=== PATIENT | male | born 1940 ===

== ENCOUNTER 2018-06-26 02:45 | Inpatient (IN) | payer MEDICARE ==
[2018-06-26] MEDS ORDERED: VANCOMYCIN 1,000 MG in NACL 0.9% 500 ML 500 ML IV ONE (03:30)
[2018-06-26] MEDS ORDERED: NACL 0.9% 1000 ML IV ONE (03:30)
[2018-06-26] MEDS ORDERED: ZOFRAN IV ONE (03:33)
[2018-06-26] MEDS ORDERED: PROTONIX IV ONE ×2 (03:34→05:56)
--- NOTE | 2018-06-26 03:39 | Emergency Department Report ---
ED General Adult HPI - General Chief complaint: GI Bleed Stated complaint: VOMITING BLOOD Time Seen by Provider: 06/26/18 03:18 Source: EMS (verbal report received from EMS.ems notes not available at time of chart dictation), old records reviewed Mode of arrival: Stretcher Limitations: Altered Mental Status, Physical Limitation - History of Present Illness Initial comments: This is a 78-year-old gentleman who presents to the ER from a local shelter. Patient is brought to the hospital for lethargy, hypotension and possible upper GI bleed. His primary care doctor is Dr. Grant Romero, and his medical records indicate that he has a history of anemia, sepsis, renal insufficiency, and prostatic neoplasm. The patient indicates that he has abdominal pain but he is confused. The patient is not able to describe exacerbating or relieving factors, radiation, or qualitative nature of his symptoms. History is limited as the patient appears to be delirious. snf records did not give significant additional information. -: unknown Associated Symptoms: confusion, fever/chills, malaise, nausea/vomiting, weakness - Related Data Home Medications Medication Instructions Recorded Confirmed Last Taken Famotidine [Acid Controller] 20 mg PO DAILY 06/27/18 06/27/18 06/16/18 09:00 20mg Ferrous Sulfate [Iron] 325 mg PO TIDAC 06/27/18 06/27/18 06/15/18 325mg Ropinirole HCl [Requip] 2 mg PO DAILY 06/27/18 06/27/18 06/16/18 09:00 2mg Tolterodine Tartrate [Detrol] 2 mg PO DAILY 06/27/18 06/27/18 06/15/18 09:00 2mg Allergies Allergy/AdvReac Type Severity Reaction Status Date / Time No Known Drug Allergies Allergy Unknown Verified 06/26/18 03:39 ED Review of Systems ROS: Stated complaint: VOMITING BLOOD Other details as noted in HPI Comment: Unobtainable due to pts medical conditions ED Past Medical Hx - Medications Home Medications: Home Medications Medication Instructions Recorded Confirmed Last Taken Type Famotidine [Acid Controller] 20 mg PO DAILY 06/27/18 06/27/18 06/16/18 09:00 History 20mg Ferrous Sulfate [Iron] 325 mg PO TIDAC 06/27/18 06/27/18 06/15/18 History 325mg Ropinirole HCl [Requip] 2 mg PO DAILY 06/27/18 06/27/18 06/16/18 09:00 History 2mg Tolterodine Tartrate [Detrol] 2 mg PO DAILY 06/27/18 06/27/18 06/15/18 09:00 History 2mg ED Physical Exam - General Limitations: Altered Mental Status, Physical Limitation General appearance: anxious - Head Head exam: Present: atraumatic - Eye Eye exam: Present: normal appearance - ENT ENT exam: Present: normal exam, mucous membranes dry, normal external ear exam - Neck Neck exam: Present: normal inspection, full ROM. Absent: tenderness, meningismus - Respiratory Respiratory exam: Present: rhonchi. Absent: rales - Cardiovascular Cardiovascular Exam: Present: normal rhythm, tachycardia, normal heart sounds - GI/Abdominal GI/Abdominal exam: Present: soft, tenderness. Absent: distended, pulsatile mass - Rectal Rectal exam: Present: normal inspection, heme (+) stool, black stool, other ( chaperoned by nurse FLACO TURNER) - exam: Present: normal inspection External exam: Present: normal external exam - Extremities Exam Extremities exam: Present: normal inspection, pedal edema - Back Exam Back exam: Present: normal inspection. Absent: tenderness, CVA tenderness (R), paraspinal tenderness - Neurological Exam Neurological exam: Present: altered, other (patient is awake. Patient follows some commands. He moves 4 extremities. There is no facial droop. Detailed neurologic examination is incomplete secondary to delirium and patient's inability to cooperate.) - Psychiatric Psychiatric exam: Present: anxious - Skin Skin exam: Present: dry ED Course Vital Signs 06/26/18 06/26/18 06/26/18 03:16 04:15 05:25 Temperature 100.9 F H Pulse Rate 110 H 130 H Respiratory 18 20 Rate Blood Pressure 106/49 109/43 116/60 Blood Pressure 106/49 [Left] O2 Sat by Pulse 98 98 93 Oximetry 06/26/18 06/26/18 06/26/18 06:15 07:00 07:51 Temperature Pulse Rate 122 H 115 H 109 H Respiratory 28 H 25 H 25 H Rate Blood Pressure 116/59 128/50 120/52 Blood Pressure [Left] O2 Sat by Pulse 100 99 97 Oximetry - Reevaluation(s) Reevaluation #1: 06/26/18 03:37 Differential diagnosis, including but not limited to: Bacteremia, pneumonia, urinary tract infection, intra-abdominal infection, GI bleed Assessment and plan: 78-year-old male with hypotension, delirium, history of coffee-ground emesis, black stool, guaiac positive, focal rhonchi noted on the bilateral lower lung oliveira. Has a fever of 100.9 and tachycardic. Clinical picture is concerning for both GI bleed as well as sepsis. The patient will be resuscitated according to the sepsis pathway. 2 large bore IVs will be established, he will be made nothing per mouth, head of bed will be elevated, broad-spectrum antibiotics will be delivered, CT scan of the brain, x-ray of the chest, CT scan of the abdomen and pelvis will be acquired. In terms of his GI bleed, he will receive IV fluids, Protonix, anti-emetic medication, and we will obtain GI consult. Patient will be admitted to the hospital once his initial diagnostics have resulted. Reevaluation #2: 06/26/18 05:35 CT scan of the brain is negative. CT scan of the abdomen and pelvis suggests fecal impaction with large amount of stool in the sigmoid colon and left colon, as well as colitis of the sigmoid colon. There is no obstruction. Patient on my exam likely has a sinus tachycardia with a sinus arrhythmia. Case is presented to the Hospital physician, Dr. Vazquez; she accepted the patient to the medical service. Awaiting callback from GI. ED Medical Decision Making - Lab Data Result diagrams: 06/27/18 09:10 06/27/18 09:10 Vital Signs 06/26/18 03:16 Temperature 100.9 F H Pulse Rate 110 H Respiratory 18 Rate Blood Pressure 106/49 Blood Pressure 106/49 [Left] O2 Sat by Pulse 98 Oximetry Vital Signs 06/26/18 03:16 Temperature 100.9 F H Pulse Rate 110 H Respiratory 18 Rate Blood Pressure 106/49 Blood Pressure 106/49 [Left] O2 Sat by Pulse 98 Oximetry Lab Results 06/26/18 06/26/18 06/26/18 Range/Units 03:50 03:50 03:50 WBC 28.9 H (4.5-11.0) K/mm3 RBC 4.12 (3.65-5.03) M/mm3 Hgb 9.0 L (11.8-15.2) gm/dl Hct 29.1 L (35.5-45.6) % MCV 71 L (84-94) fl MCH 22 L (28-32) pg MCHC 31 L (32-34) % RDW 21.4 H (13.2-15.2) % Plt Count 439 (140-440) K/mm3 PT 17.4 H (12.2-14.9) Sec. INR 1.37 H (0.87-1.13) APTT 32.2 (24.2-36.6) Sec. Sodium 131 L (137-145) mmol/L Potassium 3.3 L (3.6-5.0) mmol/L Chloride 93.2 L (98-107) mmol/L Carbon Dioxide 20 L (22-30) mmol/L Anion Gap 21 mmol/L BUN 20 (9-20) mg/dL Creatinine 1.7 H (0.8-1.5) mg/dL Estimated GFR 39 ml/min BUN/Creatinine Ratio 12 % Glucose 191 H (75-100) mg/dL Calcium 8.5 (8.4-10.2) mg/dL Magnesium (1.7-2.3) mg/dL Total Bilirubin 1.50 H (0.1-1.2) mg/dL AST 14 (5-40) units/L ALT 7 (7-56) units/L Alkaline Phosphatase 75 (35-129) units/L Ammonia (25-60) umol/L Total Creatine Kinase 69 (55-170) units/L Total Protein 6.3 (6.3-8.2) g/dL Albumin 2.6 L (3.9-5) g/dL Albumin/Globulin Ratio 0.7 % 06/26/18 06/26/18 Range/Units 03:50 03:50 WBC (4.5-11.0) K/mm3 RBC (3.65-5.03) M/mm3 Hgb (11.8-15.2) gm/dl Hct (35.5-45.6) % MCV (84-94) fl MCH (28-32) pg MCHC (32-34) % RDW (13.2-15.2) % Plt Count (140-440) K/mm3 PT (12.2-14.9) Sec. INR (0.87-1.13) APTT (24.2-36.6) Sec. Sodium (137-145) mmol/L Potassium (3.6-5.0) mmol/L Chloride (98-107) mmol/L Carbon Dioxide (22-30) mmol/L Anion Gap mmol/L BUN (9-20) mg/dL Creatinine (0.8-1.5) mg/dL Estimated GFR ml/min BUN/Creatinine Ratio % Glucose (75-100) mg/dL Calcium (8.4-10.2) mg/dL Magnesium 1.70 (1.7-2.3) mg/dL Total Bilirubin (0.1-1.2) mg/dL AST (5-40) units/L ALT (7-56) units/L Alkaline Phosphatase (35-129) units/L Ammonia 62.0 H (25-60) umol/L Total Creatine Kinase (55-170) units/L Total Protein (6.3-8.2) g/dL Albumin (3.9-5) g/dL Albumin/Globulin Ratio % - EKG Data -: EKG Interpreted by Me EKG shows normal: sinus rhythm Rate: tachycardia - EKG Data When compared to previous EKG there are: previous EKG unavailable 06/26/18 04:49 Sinus tachycardia, normal axis, QTC prolonged, motion artifact, no gross evidence of ST elevation myocardial infarction. Ventricular rate approximately 1 23 bpm - Radiology Data Radiology results: image reviewed interpreted by me: X-ray of the chest is rotated, shows no obvious disease, poor inspiratory effort Critical care attestation.: If time is entered above; I have spent that time in minutes in the direct care of this critically ill patient, excluding procedure time. ED Disposition Clinical Impression: Sepsis, GI bleed Disposition: OP ADMIT IP TO THIS HOSP Is pt being admited?: Yes Condition: Poor
[2018-06-26] MEDS ORDERED: LEVAQUIN 750MG/150ML 750 MG/150 ML BAG IV ONE (04:00)
[2018-06-26] MEDS ORDERED: MAXIPIME/NS 2 GM/100 ML 2 GM/100 ML BAG IV ONE (04:00)
[2018-06-26] MEDS ORDERED: NACL 0.9% 250ML 250 ML IV ONE (04:11)
[2018-06-26] MEDS ORDERED: NACL 0.9% 500 ML 500 ML IV ONE (04:11)
[2018-06-26 04:25] LABS: Hematocrit 29.1 % (35.5-45.6); Mean Corpuscular HGB Conc 31 % (32-34); Mean Corpuscular Volume 71 fl (84-94); Platelet Count 439 K/mm3 (140-440); Red Blood Count 4.12 M/mm3 (3.65-5.03)
[2018-06-26 04:27] LABS: INR 1.37 (0.87-1.13)
[2018-06-26 04:28] LABS: Partial Thromboplastin Time 32.2 Sec. (24.2-36.6)
[2018-06-26 04:29] LABS: Mean Corpuscular Hemoglobin 22 pg (28-32); Red Cell Distribution Width 21.4 % (13.2-15.2)
[2018-06-26 04:34] LABS: Albumin 2.6 g/dL (3.9-5); Calcium 8.5 mg/dL (8.4-10.2)
[2018-06-26] MEDS ORDERED: VANCOMYCIN 1,750 MG in NACL 0.9% 500 ML 500 ML IV ONE (05:00)
[2018-06-26 05:09] LABS: Band Neutrophils # (Manual) 5.5 K/mm3; Basophils % (Manual) 0 % (0.0-1.8); Eosinophils % (Manual) 0 % (0.0-4.3); Monocytes % (Manual) 7.5 % (0.0-7.3); Total Cells Counted 200
[2018-06-26 05:10] LABS: Anisocytosis 1+; Hypochromasia 1+; Platelet Estimate Consistent w Auto
--- NOTE | 2018-06-26 05:11 | XRay Report ---
FINAL REPORT PROCEDURE: XR CHEST 1V AP TECHNIQUE: Chest radiograph anteroposterior view. CPT 33260 HISTORY: sepsis pna COMPARISON: No prior studies are available for comparison. FINDINGS: Heart: Normal. Mediastinum/Vessels: Normal. Lungs/Pleural space: Normal. Bony thorax: No acute osseous abnormality. Life support devices: None. IMPRESSION: No acute cardiopulmonary abnormality.
--- NOTE | 2018-06-26 05:16 | Cat Scan Report ---
FINAL REPORT PROCEDURE: CT HEAD/BRAIN WO CON TECHNIQUE: Computerized tomography of the head was performed without contrast material. HISTORY: AMS COMPARISON: No prior studies are available for comparison. FINDINGS: Skull and scalp: Normal. Paranasal sinuses: Normal. Ventricles and subarachnoid spaces: There is advanced central and cortical atrophy. There is no hydrocephalus or asymmetry.. Cerebrum: No evidence of hemorrhage, acute infarction or mass. There is mild chronic deep white matter ischemic gliosis. Cerebellum and brainstem: No evidence of hemorrhage, acute infarction or mass. Vasculature: Normal. Comments: None. IMPRESSION: There are chronic involutional and ischemic changes. There is no the hemorrhage, edema, mass, mass effect or midline shift.
--- NOTE | 2018-06-26 05:26 | Cat Scan Report ---
FINAL REPORT PROCEDURE: CT ABDOMEN PELVIS WO CON TECHNIQUE: Computerized axial tomography of the abdomen and pelvis was performed without intravenous contrast. This study is performed without intravascular contrast material and its sensitivity for abdominal and pelvic pathology, including neoplasms, inflammation, abscess, free fluid, thrombosis, arterial dissection and infarction, is reduced compared with a contrast enhanced study. HISTORY: abd pain sepsis COMPARISON: No prior studies are available for comparison. FINDINGS: Visualized lower thorax: No significant abnormality. Liver: Normal size and attenuation. Spleen: Normal size and attenuation. Gallbladder and biliary system: There is cholelithiasis.. Pancreas: Normal. Adrenals: Normal. Kidneys: Normal. GI tract: There is a small hiatal hernia. The stomach and small bowel are otherwise unremarkable. There is fecal impaction. There is a large amount of stool in the sigmoid colon and left colon. There is mucosal thickening of the sigmoid colon suggesting colitis. There is no volvulus, mechanical obstruction or mass. There is no diverticulitis. The appendix is normal.. Lymph nodes and mesentery: Normal. Vasculature: There is calcified plaque in the abdominal aorta. There is no aneurysm per. Bladder: Normal. Reproductive organs: Normal. Peritoneum: There is no ascites or free air, abscess or adenopathy.. Musculoskeletal structures: There are old fractures of the left superior and inferior pubic rami.. Other: None. IMPRESSION: There is cholelithiasis.. There is a small hiatal hernia. The stomach and small bowel are otherwise unremarkable. There is fecal impaction. There is a large amount of stool in the sigmoid colon and left colon. There is mucosal thickening of the sigmoid colon suggesting colitis. There is no volvulus, mechanical obstruction or mass. There is no diverticulitis. The appendix is normal.. There is no ascites or free air, abscess or adenopathy.. There are old fractures of the left superior and inferior pubic rami.. .
[2018-06-26] MEDS ORDERED: ZOFRAN ONE (05:56)
--- NOTE | 2018-06-26 06:12 | History and Physical Report ---
History of Present Illness Date of examination: 06/26/18 Date of admission: 06/26/18 Chief complaint: Lethargy and hypotension per report History of present illness: Patient is a 78 y/o [place] resident with hx of anemia, renal insufficiency, and prostate cancer who was brought to the ED for lethargy, hypotension and possible upper GI bleed. Patient is a poor historian and does not know why he was brought to the hospital, so hx was obtained from the chart. He admits to generalized abdominal pain. No reported hx of fever, vomiting, chest pain, sob, diarrhea, falls, syncope or LOC. Past History Past Medical History: renal failure, other (Prostate cancer, anemia) Past Surgical History: Other (could not be obtained due to AMS) Social history: other (could not be obtained due to AMS) Family history: other (could not be obtained due to AMS) Medications and Allergies Allergies Allergy/AdvReac Type Severity Reaction Status Date / Time No Known Drug Allergies Allergy Unknown Verified 06/26/18 03:39 Active Meds: Active Medications Vancomycin HCl 1,750 mg/ (Sodium Chloride) 535 mls @ 333.333 mls/hr IV ONCE ONE Stop: 06/26/18 06:36 Potassium Chloride (Kcl 10meq/100ml) 10 meq in 100 mls @ 100 mls/hr IV Q1H DELORES Stop: 06/26/18 07:59 Metronidazole (Flagyl 500 Mg/100 Ml) 500 mg in 100 mls @ 100 mls/hr IV Q8HR DELORES ; Protocol Piperacillin Sod/Tazobactam Sod (Zosyn/Ns 3.375gm/50ml) 3.375 gm in 50 mls @ 100 mls/hr IV Q8H DELORES; Protocol Pantoprazole Sodium (Protonix) 40 mg IV BID DELORES Review of Systems ROS unobtainable: due to mental status Exam - Constitutional Vitals: Temp Pulse Resp BP Pulse Ox 100.9 F H 110 H 18 106/49 98 06/26/18 03:16 06/26/18 03:16 06/26/18 03:16 06/26/18 03:16 06/26/18 03:16 General appearance: Present: no acute distress - EENT Eyes: Present: PERRL, EOM intact ENT: clear oral mucosa, other (hearing impairment) - Neck Neck: Present: supple, normal ROM - Respiratory Respiratory effort: normal Respiratory: bilateral: CTA - Cardiovascular Rhythm: other (tachycardia with regular rhythm) Heart Sounds: Present: S1 & S2 - Extremities Extremities: pulses symmetrical Extremity abnormal: edema (trace edema in BLE) - Abdominal General gastrointestinal: Present: soft, tender (mild and generalized), non- distended, normal bowel sounds Male genitourinary: Present: deferred - Neurologic Neurologic: CNII-XII intact Results - Labs CBC & Chem 7: 06/26/18 03:50 06/26/18 03:50 Labs: Laboratory Last Values WBC 28.9 K/mm3 (4.5-11.0) H 06/26/18 03:50 RBC 4.12 M/mm3 (3.65-5.03) 06/26/18 03:50 Hgb 9.0 gm/dl (11.8-15.2) L 06/26/18 03:50 Hct 29.1 % (35.5-45.6) L 06/26/18 03:50 MCV 71 fl (84-94) L 06/26/18 03:50 MCH 22 pg (28-32) L 06/26/18 03:50 MCHC 31 % (32-34) L 06/26/18 03:50 RDW 21.4 % (13.2-15.2) H 06/26/18 03:50 Plt Count 439 K/mm3 (140-440) 06/26/18 03:50 Add Manual Diff Complete 06/26/18 03:50 Total Counted 200 06/26/18 03:50 Seg Neuts % (Manual) 72.5 % (40.0-70.0) H 06/26/18 03:50 Band Neutrophils % 19.0 % 06/26/18 03:50 Lymphocytes % (Manual) 1.0 % (13.4-35.0) L 06/26/18 03:50 Reactive Lymphs % (Man) 0 % 06/26/18 03:50 Monocytes % (Manual) 7.5 % (0.0-7.3) H 06/26/18 03:50 Eosinophils % (Manual) 0 % (0.0-4.3) 06/26/18 03:50 Basophils % (Manual) 0 % (0.0-1.8) 06/26/18 03:50 Metamyelocytes % 0 % 06/26/18 03:50 Myelocytes % 0 % 06/26/18 03:50 Promyelocytes % 0 % 06/26/18 03:50 Blast Cells % 0 % 06/26/18 03:50 Nucleated RBC % Not Reportable 06/26/18 03:50 Seg Neutrophils # Man 21.0 K/mm3 (1.8-7.7) H 06/26/18 03:50 Band Neutrophils # 5.5 K/mm3 06/26/18 03:50 Lymphocytes # (Manual) 0.3 K/mm3 (1.2-5.4) L 06/26/18 03:50 Abs React Lymphs (Man) 0.0 K/mm3 06/26/18 03:50 Monocytes # (Manual) 2.2 K/mm3 (0.0-0.8) H 06/26/18 03:50 Eosinophils # (Manual) 0.0 K/mm3 (0.0-0.4) 06/26/18 03:50 Basophils # (Manual) 0.0 K/mm3 (0.0-0.1) 06/26/18 03:50 Metamyelocytes # 0.0 K/mm3 06/26/18 03:50 Myelocytes # 0.0 K/mm3 06/26/18 03:50 Promyelocytes # 0.0 K/mm3 06/26/18 03:50 Blast Cells # 0.0 K/mm3 06/26/18 03:50 WBC Morphology Not Reportable 06/26/18 03:50 Hypersegmented Neuts Not Reportable 06/26/18 03:50 Hyposegmented Neuts Not Reportable 06/26/18 03:50 Hypogranular Neuts Not Reportable 06/26/18 03:50 Smudge Cells Not Reportable 06/26/18 03:50 Toxic Granulation Not Reportable 06/26/18 03:50 Toxic Vacuolation Not Reportable 06/26/18 03:50 Dohle Bodies Not Reportable 06/26/18 03:50 Pelger-Huet Anomaly Not Reportable 06/26/18 03:50 Reza Rods Not Reportable 06/26/18 03:50 Platelet Estimate Consistent w auto 06/26/18 03:50 Clumped Platelets Not Reportable 06/26/18 03:50 Plt Clumps, EDTA Not Reportable 06/26/18 03:50 Large Platelets Not Reportable 06/26/18 03:50 Giant Platelets Not Reportable 06/26/18 03:50 Platelet Satelliting Not Reportable 06/26/18 03:50 Plt Morphology Comment Not Reportable 06/26/18 03:50 RBC Morphology Not Reportable 06/26/18 03:50 Dimorphic RBCs Not Reportable 06/26/18 03:50 Polychromasia Not Reportable 06/26/18 03:50 Hypochromasia 1+ 06/26/18 03:50 Poikilocytosis Not Reportable 06/26/18 03:50 Anisocytosis 1+ 06/26/18 03:50 Microcytosis Not Reportable 06/26/18 03:50 Macrocytosis Not Reportable 06/26/18 03:50 Spherocytes Not Reportable 06/26/18 03:50 Pappenheimer Bodies Not Reportable 06/26/18 03:50 Sickle Cells Not Reportable 06/26/18 03:50 Target Cells Not Reportable 06/26/18 03:50 Tear Drop Cells Not Reportable 06/26/18 03:50 Ovalocytes Not Reportable 06/26/18 03:50 Helmet Cells Not Reportable 06/26/18 03:50 [place] Bodies Not Reportable 06/26/18 03:50 [place] Rings Not Reportable 06/26/18 03:50 Buster Cells Not Reportable 06/26/18 03:50 Bite Cells Not Reportable 06/26/18 03:50 Crenated Cell Not Reportable 06/26/18 03:50 Elliptocytes 1+ 06/26/18 03:50 Acanthocytes (Spur) Not Reportable 06/26/18 03:50 Rouleaux Not Reportable 06/26/18 03:50 Hemoglobin C Crystals Not Reportable 06/26/18 03:50 Schistocytes Not Reportable 06/26/18 03:50 Malaria parasites Not Reportable 06/26/18 03:50 Lj Bodies Not Reportable 06/26/18 03:50 Hem Pathologist Commnt No 06/26/18 03:50 PT 17.4 Sec. (12.2-14.9) H 06/26/18 03:50 INR 1.37 (0.87-1.13) H 06/26/18 03:50 APTT 32.2 Sec. (24.2-36.6) 06/26/18 03:50 Sodium 131 mmol/L (137-145) L 06/26/18 03:50 Potassium 3.3 mmol/L (3.6-5.0) L 06/26/18 03:50 Chloride 93.2 mmol/L (98-107) L 06/26/18 03:50 Carbon Dioxide 20 mmol/L (22-30) L 06/26/18 03:50 Anion Gap 21 mmol/L 06/26/18 03:50 BUN 20 mg/dL (9-20) 06/26/18 03:50 Creatinine 1.7 mg/dL (0.8-1.5) H 06/26/18 03:50 Estimated GFR 39 ml/min 06/26/18 03:50 BUN/Creatinine Ratio 12 % 06/26/18 03:50 Glucose 191 mg/dL (75-100) H 06/26/18 03:50 Lactic Acid 2.90 mmol/L (0.7-2.0) H* 06/26/18 03:50 Calcium 8.5 mg/dL (8.4-10.2) 06/26/18 03:50 Magnesium 1.70 mg/dL (1.7-2.3) 06/26/18 03:50 Total Bilirubin 1.50 mg/dL (0.1-1.2) H 06/26/18 03:50 AST 14 units/L (5-40) 06/26/18 03:50 ALT 7 units/L (7-56) 06/26/18 03:50 Alkaline Phosphatase 75 units/L (35-129) 06/26/18 03:50 Ammonia 62.0 umol/L (25-60) H 06/26/18 03:50 Total Creatine Kinase 69 units/L (55-170) 06/26/18 03:50 Total Protein 6.3 g/dL (6.3-8.2) 06/26/18 03:50 Albumin 2.6 g/dL (3.9-5) L 06/26/18 03:50 Albumin/Globulin Ratio 0.7 % 06/26/18 03:50 TSH 1.910 mlU/mL (0.270-4.200) 06/26/18 03:50 Blood Type A POSITIVE 06/26/18 03:50 Antibody Screen Negative 06/26/18 03:50 Assessment and Plan Assessment and plan: Severe sepsis, probably sec to colitis -sepsis protocol -on iv antibiotics -f/u blood culture results Acute encephalopathy, probably sec to the sepsis -CT head neg -will monitor clinically Hypotension, likely sec to the sepsis -s/p IVF boluses in the ED -on maintenance IVF, will monitor BP closely Heme positive stool -on protonix -monitor H/H -GI consulted in the ED Hyponatremia -on IVF, will monitor na level Hypokalemia -repleted in the ED -will monitor and cont repletion as needed Acute on CRF -baseline cr level unknown -on IVF, will monitor cr level Fecal impaction -on laxatives Hyperglycemia -will check HBA1C level -wll place pt on Lantus and SSI Prophylaxis -DVT prophylaxis with SCD TIME SPENT: 40 MINUTES
[2018-06-26] MEDS: KCL 10MEQ/100ML 10 MEQ/100 ML BAG IV SCH ×2 (06:17→07:41)
[2018-06-26] MEDS: TYLENOL PO ONE ×2 (06:23→06:45)
[2018-06-26] MEDS ORDERED: D50W (25GM) Syringe IV PRN (06:35)
--- NOTE | 2018-06-26 06:45 | Emergency Department Report ---
Blank Doc - Documentation Documentation: Patient is 78-year-old male with history of prostate cancer admitted to the hospital for possible upper GI bleed. I discussed the patient was Dr. Jolley from gastroenterology and he advised that he will follow-up with the patient in the hospital.
[2018-06-26] MEDS ORDERED: TYLENOL ONE (06:58)
[2018-06-26 07:10] LABS: Bacteria,Urine 1+ /HPF (Negative); Bilirubin,Urine SM (Negative); Blood,Urine NEG (Negative); Color,Urine Amber (Yellow); Mucus,Urine FEW /HPF
[2018-06-26 07:20] LABS: Ictotest,Urine Negative (Negative)
[2018-06-26] MEDS ORDERED: NACL 0.9% 1000 ML 2,000 ML IV ONE (07:30)
[2018-06-26] MEDS ORDERED: MIRALAX 3350 PO SCH (10:00)
[2018-06-26] MEDS ORDERED: DULCOLAX PR SCH (10:00)
[2018-06-26] MEDS: FLAGYL 500 MG/100 ML 500 MG/100 ML BAG IV SCH ×3 (10:13→21:48)
[2018-06-26 10:15] LABS: Hemoglobin 8.5 gm/dl (11.8-15.2)
[2018-06-26] MEDS: SENOKOT S PO SCH ×2 (10:30→21:48)
[2018-06-26] MEDS: HumaLOG SUB-Q SCH ×3 (11:45→23:00)
[2018-06-26] MEDS: PROTONIX IV SCH ×2 (12:00→21:48)
[2018-06-26] MEDS: ZOSYN/NS 3.375GM/50ML 3.375 GM/50 ML BAG IV SCH ×2 (12:00→16:45)
[2018-06-26] MEDS: NACL 0.9% 1000 ML 1,000 ML IV SCH (12:23)
[2018-06-26] MEDS: MORPHINE IV PRN ×2 (12:47→21:52)
--- NOTE | 2018-06-26 14:10 | Gastroenterology Consultation ---
History of Present Illness - Reason for Consult Consult date: 06/26/18 UGI bleed Requesting physician: EVIE LUNDBERG - History of Present Illness Mr Cosme is a 78 yo male who presents with coffee ground emesis, lethargy, abd pain and hypotension. Pt found to have sepsis on admission. Pt is a poor historian and history primarily gathered from chart review and some from patient. He has had abdominal pain for several days, mostly in lower abdomen. Multiple episodes n/v over last few days, dark appearing per pt although no episodes here. he has had black liquid stools since admission. History of renal disease and prostate cancer per chart review. pt with elevated wbc count and anemia on admission. BUN wnl. Past History Past Medical History: renal failure, other (Prostate cancer, anemia) Past Surgical History: Other (could not be obtained due to AMS) Social history: other (could not be obtained due to AMS) Family history: other (could not be obtained due to AMS) Medications and Allergies Allergies Allergy/AdvReac Type Severity Reaction Status Date / Time No Known Drug Allergies Allergy Unknown Verified 06/26/18 03:39 Active Meds: Active Medications Bisacodyl (Dulcolax) 10 mg CO DAILY DELORES Dextrose (D50w (25gm) Syringe) 50 ml IV PRN PRN PRN Reason: Hypoglycemia Metronidazole (Flagyl 500 Mg/100 Ml) 500 mg in 100 mls @ 100 mls/hr IV Q8HR DELORES ; Protocol Last Admin: 06/26/18 10:13 Dose: 100 mls/hr Piperacillin Sod/Tazobactam Sod (Zosyn/Ns 3.375gm/50ml) 3.375 gm in 50 mls @ 100 mls/hr IV Q8H DELORES; Protocol Last Admin: 06/26/18 12:00 Dose: 100 mls/hr Sodium Chloride (Nacl 0.9% 1000 Ml) 1,000 mls @ 100 mls/hr IV DIRECT DELORES Last Admin: 06/26/18 12:23 Dose: 100 mls/hr Insulin Glargine (Lantus) 10 units SUB-Q QHS DELORES Insulin Human Lispro (Humalog) 0 unit SUB-Q ACHS DELORES; Protocol Last Admin: 06/26/18 11:45 Dose: 3 unit Morphine Sulfate (Morphine) 1 mg IV Q4H PRN PRN Reason: Pain, Moderate (4-6) Last Admin: 06/26/18 12:47 Dose: 1 mg Pantoprazole Sodium (Protonix) 40 mg IV BID DELORES Polyethylene Glycol (Miralax 3350) 17 gm PO DAILY DELORES Senna/Docusate Sodium (Senokot S) 2 tab PO BID DELORES Review of Systems - Review of Systems ROS unobtainable: due to mental status Exam - Constitutional Vital Signs: Temp Pulse Resp BP Pulse Ox 100.9 F H 115 H 20 128/50 99 06/26/18 03:16 06/26/18 07:00 06/26/18 12:47 06/26/18 07:00 06/26/18 07:00 General appearance: no acute distress - EENT Eyes: PERRL, EOM intact ENT: other (dry mucous membranes) - Respiratory Respiratory effort: normal Respiratory: bilateral: CTA - Cardiovascular Rhythm: regular Heart Sounds: Present: S1 & S2 Extremities: No edema - Gastrointestinal General gastrointestinal: Present: soft, tender (diffuse ttp), distended (mild distention), hypoactive bowel sounds - Neurologic Neurological: oriented to person, oriented to place - Psychiatric Psychiatric: other (+ memory loss) - Labs CBC & Chem 7: 06/26/18 09:51 06/26/18 09:51 Lab Results: Laboratory Results - last 24 hr 06/26/18 06/26/18 06/26/18 03:50 03:50 03:50 WBC 28.9 H RBC 4.12 Hgb 9.0 L Hct 29.1 L MCV 71 L MCH 22 L MCHC 31 L RDW 21.4 H Plt Count 439 Add Manual Diff Complete Total Counted 200 Seg Neuts % (Manual) 72.5 H Band Neutrophils % 19.0 Lymphocytes % (Manual) 1.0 L Reactive Lymphs % (Man) 0 Monocytes % (Manual) 7.5 H Eosinophils % (Manual) 0 Basophils % (Manual) 0 Metamyelocytes % 0 Myelocytes % 0 Promyelocytes % 0 Blast Cells % 0 Nucleated RBC % Not Reportable Seg Neutrophils # Man 21.0 H Band Neutrophils # 5.5 Lymphocytes # (Manual) 0.3 L Abs React Lymphs (Man) 0.0 Monocytes # (Manual) 2.2 H Eosinophils # (Manual) 0.0 Basophils # (Manual) 0.0 Metamyelocytes # 0.0 Myelocytes # 0.0 Promyelocytes # 0.0 Blast Cells # 0.0 WBC Morphology Not Reportable Hypersegmented Neuts Not Reportable Hyposegmented Neuts Not Reportable Hypogranular Neuts Not Reportable Smudge Cells Not Reportable Toxic Granulation Not Reportable Toxic Vacuolation Not Reportable Dohle Bodies Not Reportable Pelger-Huet Anomaly Not Reportable Reza Rods Not Reportable Platelet Estimate Consistent w auto Clumped Platelets Not Reportable Plt Clumps, EDTA Not Reportable Large Platelets Not Reportable Giant Platelets Not Reportable Platelet Satelliting Not Reportable Plt Morphology Comment Not Reportable RBC Morphology Not Reportable Dimorphic RBCs Not Reportable Polychromasia Not Reportable Hypochromasia 1+ Poikilocytosis Not Reportable Anisocytosis 1+ Microcytosis Not Reportable Macrocytosis Not Reportable Spherocytes Not Reportable Pappenheimer Bodies Not Reportable Sickle Cells Not Reportable Target Cells Not Reportable Tear Drop Cells Not Reportable Ovalocytes Not Reportable Helmet Cells Not Reportable [place] Bodies Not Reportable [place] Rings Not Reportable [place] Cells Not Reportable Bite Cells Not Reportable Crenated Cell Not Reportable Elliptocytes 1+ Acanthocytes (Spur) Not Reportable Rouleaux Not Reportable Hemoglobin C Crystals Not Reportable Schistocytes Not Reportable Malaria parasites Not Reportable Lj Bodies Not Reportable Hem Pathologist Commnt No PT 17.4 H INR 1.37 H APTT 32.2 Sodium Potassium Chloride Carbon Dioxide Anion Gap BUN Creatinine Estimated GFR BUN/Creatinine Ratio Glucose POC Glucose Hemoglobin A1c Lactic Acid Calcium Magnesium Total Bilirubin AST ALT Alkaline Phosphatase Ammonia Total Creatine Kinase Total Protein Albumin Albumin/Globulin Ratio TSH Urine Color Urine Turbidity Urine pH Ur Specific [place] Urine Protein Urine Glucose (UA) Urine Ketones Urine Blood Urine Nitrite Urine Bilirubin Urine Ictotest Urine Urobilinogen Ur Leukocyte Esterase Urine WBC (Auto) Urine RBC (Auto) Urine Bacteria (Auto) Urine Mucus Blood Type A POSITIVE Antibody Screen Negative 06/26/18 06/26/18 06/26/18 03:50 03:50 03:50 WBC RBC Hgb Hct MCV MCH MCHC RDW Plt Count Add Manual Diff Total Counted Seg Neuts % (Manual) Band Neutrophils % Lymphocytes % (Manual) Reactive Lymphs % (Man) Monocytes % (Manual) Eosinophils % (Manual) Basophils % (Manual) Metamyelocytes % Myelocytes % Promyelocytes % Blast Cells % Nucleated RBC % Seg Neutrophils # Man Band Neutrophils # Lymphocytes # (Manual) Abs React Lymphs (Man) Monocytes # (Manual) Eosinophils # (Manual) Basophils # (Manual) Metamyelocytes # Myelocytes # Promyelocytes # Blast Cells # WBC Morphology Hypersegmented Neuts Hyposegmented Neuts Hypogranular Neuts Smudge Cells Toxic Granulation Toxic Vacuolation Dohle Bodies Pelger-Huet Anomaly Reza Rods Platelet Estimate Clumped Platelets Plt Clumps, EDTA Large Platelets Giant Platelets Platelet Satelliting Plt Morphology Comment RBC Morphology Dimorphic RBCs Polychromasia Hypochromasia Poikilocytosis Anisocytosis Microcytosis Macrocytosis Spherocytes Pappenheimer Bodies Sickle Cells Target Cells Tear Drop Cells Ovalocytes Helmet Cells [place] Bodies [place] Rings Buster Cells Bite Cells Crenated Cell Elliptocytes Acanthocytes (Spur) Rouleaux Hemoglobin C Crystals Schistocytes Malaria parasites Lj Bodies Hem Pathologist Commnt PT INR APTT Sodium 131 L Potassium 3.3 L Chloride 93.2 L Carbon Dioxide 20 L Anion Gap 21 BUN 20 Creatinine 1.7 H Estimated GFR 39 BUN/Creatinine Ratio 12 Glucose 191 H POC Glucose Hemoglobin A1c Lactic Acid 2.90 H* Calcium 8.5 Magnesium 1.70 Total Bilirubin 1.50 H AST 14 ALT 7 Alkaline Phosphatase 75 Ammonia Total Creatine Kinase 69 Total Protein 6.3 Albumin 2.6 L Albumin/Globulin Ratio 0.7 TSH Urine Color Urine Turbidity Urine pH Ur Specific [place] Urine Protein Urine Glucose (UA) Urine Ketones Urine Blood Urine Nitrite Urine Bilirubin Urine Ictotest Urine Urobilinogen Ur Leukocyte Esterase Urine WBC (Auto) Urine RBC (Auto) Urine Bacteria (Auto) Urine Mucus Blood Type Antibody Screen 06/26/18 06/26/18 06/26/18 03:50 03:50 05:49 WBC RBC Hgb Hct MCV MCH MCHC RDW Plt Count Add Manual Diff Total Counted Seg Neuts % (Manual) Band Neutrophils % Lymphocytes % (Manual) Reactive Lymphs % (Man) Monocytes % (Manual) Eosinophils % (Manual) Basophils % (Manual) Metamyelocytes % Myelocytes % Promyelocytes % Blast Cells % Nucleated RBC % Seg Neutrophils # Man Band Neutrophils # Lymphocytes # (Manual) Abs React Lymphs (Man) Monocytes # (Manual) Eosinophils # (Manual) Basophils # (Manual) Metamyelocytes # Myelocytes # Promyelocytes # Blast Cells # WBC Morphology Hypersegmented Neuts Hyposegmented Neuts Hypogranular Neuts Smudge Cells Toxic Granulation Toxic Vacuolation Dohle Bodies Pelger-Huet Anomaly Reza Rods Platelet Estimate Clumped Platelets Plt Clumps, EDTA Large Platelets Giant Platelets Platelet Satelliting Plt Morphology Comment RBC Morphology Dimorphic RBCs Polychromasia Hypochromasia Poikilocytosis Anisocytosis Microcytosis Macrocytosis Spherocytes Pappenheimer Bodies Sickle Cells Target Cells Tear Drop Cells Ovalocytes Helmet Cells [place] Bodies [place] Rings Buster Cells Bite Cells Crenated Cell Elliptocytes Acanthocytes (Spur) Rouleaux Hemoglobin C Crystals Schistocytes Malaria parasites Lj Bodies Hem Pathologist Commnt PT INR APTT Sodium Potassium Chloride Carbon Dioxide Anion Gap BUN Creatinine Estimated GFR BUN/Creatinine Ratio Glucose POC Glucose Hemoglobin A1c Lactic Acid 6.70 H* Calcium Magnesium Total Bilirubin AST ALT Alkaline Phosphatase Ammonia 62.0 H Total Creatine Kinase Total Protein Albumin Albumin/Globulin Ratio TSH 1.910 Urine Color Urine Turbidity Urine pH Ur Specific [place] Urine Protein Urine Glucose (UA) Urine Ketones Urine Blood Urine Nitrite Urine Bilirubin Urine Ictotest Urine Urobilinogen Ur Leukocyte Esterase Urine WBC (Auto) Urine RBC (Auto) Urine Bacteria (Auto) Urine Mucus Blood Type Antibody Screen 06/26/18 06/26/18 06/26/18 06:44 09:51 09:51 WBC RBC Hgb 8.5 L Hct 29.0 L MCV MCH MCHC RDW Plt Count Add Manual Diff Total Counted Seg Neuts % (Manual) Band Neutrophils % Lymphocytes % (Manual) Reactive Lymphs % (Man) Monocytes % (Manual) Eosinophils % (Manual) Basophils % (Manual) Metamyelocytes % Myelocytes % Promyelocytes % Blast Cells % Nucleated RBC % Seg Neutrophils # Man Band Neutrophils # Lymphocytes # (Manual) Abs React Lymphs (Man) Monocytes # (Manual) Eosinophils # (Manual) Basophils # (Manual) Metamyelocytes # Myelocytes # Promyelocytes # Blast Cells # WBC Morphology Hypersegmented Neuts Hyposegmented Neuts Hypogranular Neuts Smudge Cells Toxic Granulation Toxic Vacuolation Dohle Bodies Pelger-Huet Anomaly Reza Rods Platelet Estimate Clumped Platelets Plt Clumps, EDTA Large Platelets Giant Platelets Platelet Satelliting Plt Morphology Comment RBC Morphology Dimorphic RBCs Polychromasia Hypochromasia Poikilocytosis Anisocytosis Microcytosis Macrocytosis Spherocytes Pappenheimer Bodies Sickle Cells Target Cells Tear Drop Cells Ovalocytes Helmet Cells Rubio-[place] Bodies [place] Rings [place] Cells Bite Cells Crenated Cell Elliptocytes Acanthocytes (Spur) Rouleaux Hemoglobin C Crystals Schistocytes Malaria parasites Lj Bodies Hem Pathologist Commnt PT INR APTT Sodium Potassium 3.9 Chloride Carbon Dioxide Anion Gap BUN Creatinine Estimated GFR BUN/Creatinine Ratio Glucose POC Glucose Hemoglobin A1c Lactic Acid Calcium Magnesium Total Bilirubin AST ALT Alkaline Phosphatase Ammonia Total Creatine Kinase Total Protein Albumin Albumin/Globulin Ratio TSH Urine Color [place] Urine Turbidity Slightly-cloudy Urine pH 5.0 Ur Specific [place] 1.021 Urine Protein 30 mg/dl Urine Glucose (UA) Neg Urine Ketones Tr Urine Blood Neg Urine Nitrite Neg Urine Bilirubin Sm Urine Ictotest Negative Urine Urobilinogen 4.0 Ur Leukocyte Esterase Neg Urine WBC (Auto) 2.0 Urine RBC (Auto) 1.0 Urine Bacteria (Auto) 1+ Urine Mucus Few Blood Type Antibody Screen 06/26/18 06/26/18 06/26/18 09:51 09:51 11:06 WBC RBC Hgb Hct MCV MCH MCHC RDW Plt Count Add Manual Diff Total Counted Seg Neuts % (Manual) Band Neutrophils % Lymphocytes % (Manual) Reactive Lymphs % (Man) Monocytes % (Manual) Eosinophils % (Manual) Basophils % (Manual) Metamyelocytes % Myelocytes % Promyelocytes % Blast Cells % Nucleated RBC % Seg Neutrophils # Man Band Neutrophils # Lymphocytes # (Manual) Abs React Lymphs (Man) Monocytes # (Manual) Eosinophils # (Manual) Basophils # (Manual) Metamyelocytes # Myelocytes # Promyelocytes # Blast Cells # WBC Morphology Hypersegmented Neuts Hyposegmented Neuts Hypogranular Neuts Smudge Cells Toxic Granulation Toxic Vacuolation Dohle Bodies Pelger-Huet Anomaly Reza Rods Platelet Estimate Clumped Platelets Plt Clumps, EDTA Large Platelets Giant Platelets Platelet Satelliting Plt Morphology Comment RBC Morphology Dimorphic RBCs Polychromasia Hypochromasia Poikilocytosis Anisocytosis Microcytosis Macrocytosis Spherocytes Pappenheimer Bodies Sickle Cells Target Cells Tear Drop Cells Ovalocytes Helmet Cells Rubio-[place] Bodies [place] Rings Buster Cells Bite Cells Crenated Cell Elliptocytes Acanthocytes (Spur) Rouleaux Hemoglobin C Crystals Schistocytes Malaria parasites Lj Bodies Hem Pathologist Commnt PT INR APTT Sodium Potassium Chloride Carbon Dioxide Anion Gap BUN Creatinine Estimated GFR BUN/Creatinine Ratio Glucose POC Glucose 235 H Hemoglobin A1c 6.3 H Lactic Acid 3.80 H* Calcium Magnesium Total Bilirubin AST ALT Alkaline Phosphatase Ammonia Total Creatine Kinase Total Protein Albumin Albumin/Globulin Ratio TSH Urine Color Urine Turbidity Urine pH Ur Specific [place] Urine Protein Urine Glucose (UA) Urine Ketones Urine Blood Urine Nitrite Urine Bilirubin Urine Ictotest Urine Urobilinogen Ur Leukocyte Esterase Urine WBC (Auto) Urine RBC (Auto) Urine Bacteria (Auto) Urine Mucus Blood Type Antibody Screen - Imaging CT Scan: report reviewed Assessment and Plan 1. Nausea/vomiting - ? coffee ground emesis. will plan for egd tomorrow. 2. Anemia - microcytic; repeat H/H normal. BUN normal, but unclear baseline regarding H/H. egd tomorrow. unclear regarding colonoscopy status but can address following improvement of acute medical conditions 3. Sepsis 4. Fecal impaction - tap water enema; consider gastrograffin enema
[2018-06-26 17:08] LABS: Hemoglobin 9.2 gm/dl (11.8-15.2)
[2018-06-26] MEDS ORDERED: LANTUS SUB-Q SCH (22:00)
[2018-06-26 23:08] LABS: Hematocrit 31.2 % (35.5-45.6); Hemoglobin 9.3 gm/dl (11.8-15.2)
[2018-06-27] MEDS: ZOSYN/NS 3.375GM/50ML 3.375 GM/50 ML BAG IV SCH ×2 (01:30→08:18)
[2018-06-27] MEDS: NACL 0.9% 1000 ML 1,000 ML IV SCH (05:38)
[2018-06-27] MEDS: FLAGYL 500 MG/100 ML 500 MG/100 ML BAG IV SCH (05:39)
--- NOTE | 2018-06-27 08:36 | Progress Note ---
Assessment and Plan Assessment and plan: Coffee-ground emesis. She had to perform EGD today. Anemia. Continue to follow H&H and transfuse for hemoglobin less than 7. Sepsis. Continue antibiotics of Zosyn. Follow blood cultures and stool studies. Fecal impaction - tap water enema; consider gastrograffin enema History Interval history: No new issues overnight. Hospitalist Physical - Constitutional Vitals: Temp Pulse Resp BP Pulse Ox 97.5 F L 82 20 100/52 96 06/27/18 04:00 06/27/18 04:00 06/27/18 04:00 06/27/18 04:00 06/27/18 04:00 General appearance: Present: no acute distress - EENT Eyes: Present: PERRL, EOM intact ENT: hearing intact, clear oral mucosa, dentition normal - Neck Neck: Present: supple, normal ROM - Respiratory Respiratory effort: normal Respiratory: bilateral: CTA - Cardiovascular Rhythm: regular Heart Sounds: Present: S1 & S2. Absent: gallop, rub - Extremities Extremities: no ischemia, No edema, Full ROM - Abdominal General gastrointestinal: soft, non-tender, non-distended, normal bowel sounds - Integumentary Integumentary: Present: clear, warm, dry - Neurologic Neurologic: CNII-XII intact, moves all extremities Results - Labs CBC & Chem 7: 06/26/18 22:15 06/26/18 09:51 Labs: Laboratory Last Values WBC 28.9 K/mm3 (4.5-11.0) H 06/26/18 03:50 RBC 4.12 M/mm3 (3.65-5.03) 06/26/18 03:50 Hgb 9.3 gm/dl (11.8-15.2) L 06/26/18 22:15 Hct 31.2 % (35.5-45.6) L 06/26/18 22:15 MCV 71 fl (84-94) L 06/26/18 03:50 MCH 22 pg (28-32) L 06/26/18 03:50 MCHC 31 % (32-34) L 06/26/18 03:50 RDW 21.4 % (13.2-15.2) H 06/26/18 03:50 Plt Count 439 K/mm3 (140-440) 06/26/18 03:50 Add Manual Diff Complete 06/26/18 03:50 Total Counted 200 06/26/18 03:50 Seg Neuts % (Manual) 72.5 % (40.0-70.0) H 06/26/18 03:50 Band Neutrophils % 19.0 % 06/26/18 03:50 Lymphocytes % (Manual) 1.0 % (13.4-35.0) L 06/26/18 03:50 Reactive Lymphs % (Man) 0 % 06/26/18 03:50 Monocytes % (Manual) 7.5 % (0.0-7.3) H 06/26/18 03:50 Eosinophils % (Manual) 0 % (0.0-4.3) 06/26/18 03:50 Basophils % (Manual) 0 % (0.0-1.8) 06/26/18 03:50 Metamyelocytes % 0 % 06/26/18 03:50 Myelocytes % 0 % 06/26/18 03:50 Promyelocytes % 0 % 06/26/18 03:50 Blast Cells % 0 % 06/26/18 03:50 Nucleated RBC % Not Reportable 06/26/18 03:50 Seg Neutrophils # Man 21.0 K/mm3 (1.8-7.7) H 06/26/18 03:50 Band Neutrophils # 5.5 K/mm3 06/26/18 03:50 Lymphocytes # (Manual) 0.3 K/mm3 (1.2-5.4) L 06/26/18 03:50 Abs React Lymphs (Man) 0.0 K/mm3 06/26/18 03:50 Monocytes # (Manual) 2.2 K/mm3 (0.0-0.8) H 06/26/18 03:50 Eosinophils # (Manual) 0.0 K/mm3 (0.0-0.4) 06/26/18 03:50 Basophils # (Manual) 0.0 K/mm3 (0.0-0.1) 06/26/18 03:50 Metamyelocytes # 0.0 K/mm3 06/26/18 03:50 Myelocytes # 0.0 K/mm3 06/26/18 03:50 Promyelocytes # 0.0 K/mm3 06/26/18 03:50 Blast Cells # 0.0 K/mm3 06/26/18 03:50 WBC Morphology Not Reportable 06/26/18 03:50 Hypersegmented Neuts Not Reportable 06/26/18 03:50 Hyposegmented Neuts Not Reportable 06/26/18 03:50 Hypogranular Neuts Not Reportable 06/26/18 03:50 Smudge Cells Not Reportable 06/26/18 03:50 Toxic Granulation Not Reportable 06/26/18 03:50 Toxic Vacuolation Not Reportable 06/26/18 03:50 Dohle Bodies Not Reportable 06/26/18 03:50 Pelger-Huet Anomaly Not Reportable 06/26/18 03:50 Reza Rods Not Reportable 06/26/18 03:50 Platelet Estimate Consistent w auto 06/26/18 03:50 Clumped Platelets Not Reportable 06/26/18 03:50 Plt Clumps, EDTA Not Reportable 06/26/18 03:50 Large Platelets Not Reportable 06/26/18 03:50 Giant Platelets Not Reportable 06/26/18 03:50 Platelet Satelliting Not Reportable 06/26/18 03:50 Plt Morphology Comment Not Reportable 06/26/18 03:50 RBC Morphology Not Reportable 06/26/18 03:50 Dimorphic RBCs Not Reportable 06/26/18 03:50 Polychromasia Not Reportable 06/26/18 03:50 Hypochromasia 1+ 06/26/18 03:50 Poikilocytosis Not Reportable 06/26/18 03:50 Anisocytosis 1+ 06/26/18 03:50 Microcytosis Not Reportable 06/26/18 03:50 Macrocytosis Not Reportable 06/26/18 03:50 Spherocytes Not Reportable 06/26/18 03:50 Pappenheimer Bodies Not Reportable 06/26/18 03:50 Sickle Cells Not Reportable 06/26/18 03:50 Target Cells Not Reportable 06/26/18 03:50 Tear Drop Cells Not Reportable 06/26/18 03:50 Ovalocytes Not Reportable 06/26/18 03:50 Helmet Cells Not Reportable 06/26/18 03:50 [place] Bodies Not Reportable 06/26/18 03:50 [place] Rings Not Reportable 06/26/18 03:50 [place] Cells Not Reportable 06/26/18 03:50 Bite Cells Not Reportable 06/26/18 03:50 Crenated Cell Not Reportable 06/26/18 03:50 Elliptocytes 1+ 06/26/18 03:50 Acanthocytes (Spur) Not Reportable 06/26/18 03:50 Rouleaux Not Reportable 06/26/18 03:50 Hemoglobin C Crystals Not Reportable 06/26/18 03:50 Schistocytes Not Reportable 06/26/18 03:50 Malaria parasites Not Reportable 06/26/18 03:50 Lj Bodies Not Reportable 06/26/18 03:50 Hem Pathologist Commnt No 06/26/18 03:50 PT 17.4 Sec. (12.2-14.9) H 06/26/18 03:50 INR 1.37 (0.87-1.13) H 06/26/18 03:50 APTT 32.2 Sec. (24.2-36.6) 06/26/18 03:50 Sodium 131 mmol/L (137-145) L 06/26/18 03:50 Potassium 3.9 mmol/L (3.6-5.0) 06/26/18 09:51 Chloride 93.2 mmol/L (98-107) L 06/26/18 03:50 Carbon Dioxide 20 mmol/L (22-30) L 06/26/18 03:50 Anion Gap 21 mmol/L 06/26/18 03:50 BUN 20 mg/dL (9-20) 06/26/18 03:50 Creatinine 1.7 mg/dL (0.8-1.5) H 06/26/18 03:50 Estimated GFR 39 ml/min 06/26/18 03:50 BUN/Creatinine Ratio 12 % 06/26/18 03:50 Glucose 191 mg/dL (75-100) H 06/26/18 03:50 POC Glucose 139 (70-105) H 06/27/18 07:40 Hemoglobin A1c 6.3 % (4-6) H 06/26/18 09:51 Lactic Acid 6.60 mmol/L (0.7-2.0) H* 06/27/18 02:56 Calcium 8.5 mg/dL (8.4-10.2) 06/26/18 03:50 Magnesium 1.70 mg/dL (1.7-2.3) 06/26/18 03:50 Total Bilirubin 1.50 mg/dL (0.1-1.2) H 06/26/18 03:50 AST 14 units/L (5-40) 06/26/18 03:50 ALT 7 units/L (7-56) 06/26/18 03:50 Alkaline Phosphatase 75 units/L (35-129) 06/26/18 03:50 Ammonia 62.0 umol/L (25-60) H 06/26/18 03:50 Total Creatine Kinase 69 units/L (55-170) 06/26/18 03:50 Total Protein 6.3 g/dL (6.3-8.2) 06/26/18 03:50 Albumin 2.6 g/dL (3.9-5) L 06/26/18 03:50 Albumin/Globulin Ratio 0.7 % 06/26/18 03:50 TSH 1.910 mlU/mL (0.270-4.200) 06/26/18 03:50 Urine Color [place] (Yellow) 06/26/18 06:44 Urine Turbidity Slightly-cloudy (Clear) 06/26/18 06:44 Urine pH 5.0 (5.0-7.0) 06/26/18 06:44 Ur Specific [place] 1.021 (1.003-1.030) 06/26/18 06:44 Urine Protein 30 mg/dl mg/dL (Negative) 06/26/18 06:44 Urine Glucose (UA) Neg mg/dL (Negative) 06/26/18 06:44 Urine Ketones Tr mg/dL (Negative) 06/26/18 06:44 Urine Blood Neg (Negative) 06/26/18 06:44 Urine Nitrite Neg (Negative) 06/26/18 06:44 Urine Bilirubin Sm (Negative) 06/26/18 06:44 Urine Ictotest Negative (Negative) 06/26/18 06:44 Urine Urobilinogen 4.0 mg/dL (<2.0) 06/26/18 06:44 Ur Leukocyte Esterase Neg (Negative) 06/26/18 06:44 Urine WBC (Auto) 2.0 /HPF (0.0-6.0) 06/26/18 06:44 Urine RBC (Auto) 1.0 /HPF (0.0-6.0) 06/26/18 06:44 Urine Bacteria (Auto) 1+ /HPF (Negative) 06/26/18 06:44 Urine Mucus Few /HPF 06/26/18 06:44 Blood Type A POSITIVE 06/26/18 03:50 Antibody Screen Negative 06/26/18 03:50
[2018-06-27 09:02] VITALS: BP 87/64
[2018-06-27 09:42] LABS: Mean Corpuscular HGB Conc 27 % (32-34); Mean Corpuscular Volume 79 fl (84-94); Platelet Count 352 K/mm3 (140-440); Red Blood Count 5.23 M/mm3 (3.65-5.03)
[2018-06-27 09:46] LABS: Hematocrit 41.2 % (35.5-45.6); Hemoglobin 11.1 gm/dl (11.8-15.2); Mean Corpuscular Hemoglobin 21 pg (28-32)
[2018-06-27 09:47] LABS: Red Cell Distribution Width 22.4 % (13.2-15.2)
[2018-06-27] MEDS ORDERED: ADRENALIN ONE (10:05)
[2018-06-27 10:35] LABS: Basophils % (Manual) 0 % (0.0-1.8); Total Cells Counted 200
[2018-06-27 10:37] LABS: Anisocytosis 1+
[2018-06-27 10:38] LABS: Poikilocytosis 1+; Spherocytes Few
--- NOTE | 2018-06-27 12:23 | Death Summary ---
Summary - Providers Date of service: 06/27/18 Consults: 06/26/18 03:30 Consult to Physician [CONS] Stat Comment: HOLA/EVY Consulting Provider: VIVI ODOM Physician Instructions: CONSULT WAS CALLED TO Reason For Exam: gi bleed Attending: TEO MONTEMAYOR - summary Date of admission: 06/26/18 08:41 Date of : 06/27/18 Reason for admission: sepsis Disposition: Mr Cosme is a 78 yo male who presents with coffee ground emesis, lethargy, abd pain and hypotension. Pt found to have sepsis on admission. Pt was a poor historian and history primarily gathered from chart review and some from patient. He also had abdominal pain for several days, mostly in lower abdomen. Multiple episodes of n/v over last few days prior to admission. The vomitus was reported as dark appearing per pt although no episodes here. He had black liquid stools since admission. The patient was placed on the sepsis pathway and treated with Zosyn and Flagyl. The patient was noted to have a significant leukocytosis that vickey from 28.9 on admission to 49.9. Patient was noted to have a significant lactic acid level that vickey from 4.3 to 14.8. On 06/27/18, patient was noted to have deterioration with hypotension and tachycardia. Patient received IV fluid hydration. However, when the patient was reevaluated by the nurse, he was noted to be pulseless. The patient was a DO NOT RESUSCITATE as illustrated by his advanced directives from [facility] and per conversation with son. The patient was pronounced and the son was notified. - Final diagnosis (1) GI bleed Note: Final diagnosis: (2) Sepsis Note: Final diagnosis:
[2018-06-27] MEDS ORDERED: ZOSYN/NS 4.5GM/100ML 4.5 GM/100 ML VIAL IV SCH (14:00)
== END 2018-06-27 13:40 | DRG 871 ==
LOC: SUATTDRO 02:45 → ED 02:45 → 2B-ACE 08:41
PROVIDERS: ADMIT Internal Medicine; ATTEND Hospitalist
DX: A41.9 Sepsis, unspecified organism (principal); G93.40 Encephalopathy, unspecified; E87.1 Hypo-osmolality and hyponatremia; N17.9 Acute kidney failure, unspecified; K92.2 Gastrointestinal hemorrhage, unspecified; Z85.46 Personal history of malignant neoplasm of prostate; R65.20 Severe sepsis without septic shock; E87.6 Hypokalemia; N18.9 Chronic kidney disease, unspecified; K56.41 Fecal impaction; R73.9 Hyperglycemia, unspecified; Z66 Do not resuscitate
CPT/HCPCS: 36415; 70450; 71045; 74176; 80048; 80053; 81001; 82140; 82550; 82962; 83036; 83735; 84132; 84443; 85007; 85014; 85018; 85025; 85610; 85730; 86850; 86900; 86901; 87040; 87086; 87324; 93005; 93010; 96365; 96375; 99285; C9113; J0171; J0692; J1815; J1956; J2270; J2405; J2543; J3370; J3480; J7030; J7040